=== PATIENT | female | born 1965 | race Hispanic/Latino ===

== ENCOUNTER 2018-12-16 19:35 | Emergency (ER) | payer OTHER, MEDICAID ==
[2018-12-16 20:24] LABS: Basophils # (Auto) 0.1 K/mm3 (0.0-0.1); Basophils % (Auto) 0.5 % (0.0-1.8); Eosinophils % (Auto) 0.1 % (0.0-4.3); Hematocrit 34.4 % (30.3-42.9); Hemoglobin 11.3 gm/dl (10.1-14.3); Lymphocytes # (Auto) 1.9 K/mm3 (1.2-5.4); Lymphocytes % (Auto) 12.6 % (13.4-35.0); Mean Corpuscular HGB Conc 33 % (30-34); Mean Corpuscular Volume 72 fl (79-97); Monocytes # (Auto) 0.5 K/mm3 (0.0-0.8); Monocytes % (Auto) 3.2 % (0.0-7.3); Platelet Count 326 K/mm3 (140-440); Red Blood Count 4.79 M/mm3 (3.65-5.03)
[2018-12-16 20:28] LABS: Alanine Aminotransferase 21 units/L (7-56); Albumin 4.2 g/dL (3.9-5); BUN/Creatinine Ratio 17; Blood Urea Nitrogen 12 mg/dL (7-17); Calcium 9.1 mg/dL (8.4-10.2); Hemolysis Index 37
[2018-12-16] MEDS ORDERED: REGLAN IV ONE (20:35)
[2018-12-16] MEDS ORDERED: NACL 0.9% 1000 ML 1,000 ML IV ONE (20:35)
--- NOTE | 2018-12-16 20:39 | Emergency Department Report ---
ED Abdominal Pain HPI - General Chief Complaint: Abdominal Pain Stated Complaint: GEN SICKNESS,ETOH POISION Time Seen by Provider: 12/16/18 20:30 Source: patient, EMS Mode of arrival: Stretcher Limitations: Physical Limitation - History of Present Illness Initial Comments: Patient is 53 years old female with history of HIV, GERD and arthritis. Patient presented to the ER complaining of upper abdominal pain started 3 days ago. Patient stated that she ran out of her acid medicine. Patient also complaining of vomiting. She denied any hematemesis or melena. Patient denied any fever or chills. Patient also denied any chest pain or shortness of breath. MD Complaint: abdominal pain -: days(s) (3) Location: epigastric Migration to: no migration Severity: moderate Severity scale (0 -10): 4 Quality: burning - Related Data Home Medications Medication Instructions Recorded Confirmed Last Taken ALBUTEROL Inhaler (OR & NICU) 2 puff IH QID PRN 08/28/17 12/17/18 12/14/18 [ProAir HFA Inhaler] Amitriptyline [Elavil] 250 mg PO DAILY 08/28/17 12/17/18 12/14/18 Elviteg/Cob/Emtri/Tenof Alafen 1 each PO DAILY 08/28/17 12/17/18 12/14/18 [Genvoya Tablet] Omeprazole 40 mg PO DAILY 08/28/17 12/17/18 12/14/18 Pramipexole [Mirapex] 1 mg PO QHS 08/28/17 12/17/18 12/14/18 tiZANidine [Zanaflex 4mg TAB] 4 mg PO Q6H PRN 08/28/17 12/17/18 12/14/18 Previous Rx's Medication Instructions Recorded Last Taken Type ALPRAZolam [Xanax TAB] 0.5 mg PO Q6HR PRN tablet 08/31/17 12/14/18 Rx Apixaban [Eliquis] 5 mg PO BID #360 tablet 08/31/17 12/14/18 Rx Apixaban [Eliquis] 10 mg PO BID #14 tablet 08/31/17 12/14/18 Rx Sucralfate [Carafate] 1 gm PO ACHS #120 tablet 12/17/18 Unknown Rx traMADol [Ultram 50 MG tab] 50 mg PO Q4HR PRN #14 tablet 12/17/18 Unknown Rx Allergies Allergy/AdvReac Type Severity Reaction Status Date / Time No Known Allergies Allergy Verified 08/28/17 01:47 ED Review of Systems ROS: Stated complaint: GEN SICKNESS,ETOH POISION Other details as noted in HPI Comment: All other systems reviewed and negative Constitutional: denies: chills, fever Respiratory: denies: cough Cardiovascular: denies: chest pain, palpitations Gastrointestinal: abdominal pain, nausea, vomiting, diarrhea. denies: constipation, hematemesis, melena, hematochezia Musculoskeletal: denies: back pain Neurological: denies: headache, weakness, numbness, paresthesias, confusion, abnormal gait ED Past Medical Hx - Past Medical History Previous Medical History?: Yes Hx Congestive Heart Failure: No Hx Diabetes: No Hx Pulmonary Embolism: Yes Hx GERD: Yes Hx Arthritis: Yes Hx Asthma: No Hx COPD: No Hx HIV: Yes Additional medical history: hiatal hernia - Surgical History Past Surgical History?: Yes Additional Surgical History: tummy tuck, breast augmentation - Social History Smoking Status: Never Smoker Substance Use Type: Alcohol - Medications Home Medications: Home Medications Medication Instructions Recorded Confirmed Last Taken Type ALBUTEROL Inhaler (OR & NICU) 2 puff IH QID PRN 08/28/17 12/17/18 12/14/18 History [ProAir HFA Inhaler] Amitriptyline [Elavil] 250 mg PO DAILY 08/28/17 12/17/18 12/14/18 History Elviteg/Cob/Emtri/Tenof Alafen 1 each PO DAILY 08/28/17 12/17/18 12/14/18 History [Genvoya Tablet] Omeprazole 40 mg PO DAILY 08/28/17 12/17/18 12/14/18 History Pramipexole [Mirapex] 1 mg PO QHS 08/28/17 12/17/18 12/14/18 History tiZANidine [Zanaflex 4mg TAB] 4 mg PO Q6H PRN 08/28/17 12/17/18 12/14/18 History ALPRAZolam [Xanax TAB] 0.5 mg PO Q6HR PRN tablet 08/31/17 12/17/18 12/14/18 Rx Apixaban [Eliquis] 5 mg PO BID #360 tablet 08/31/17 12/17/18 12/14/18 Rx Apixaban [Eliquis] 10 mg PO BID #14 tablet 08/31/17 12/17/18 12/14/18 Rx Sucralfate [Carafate] 1 gm PO ACHS #120 tablet 12/17/18 Unknown Rx traMADol [Ultram 50 MG tab] 50 mg PO Q4HR PRN #14 tablet 12/17/18 Unknown Rx ED Physical Exam - General Limitations: Physical Limitation General appearance: alert, in no apparent distress - Head Head exam: Present: atraumatic, normocephalic, normal inspection - Eye Eye exam: Present: normal appearance - ENT ENT exam: Present: mucous membranes dry - Neck Neck exam: Present: normal inspection, full ROM. Absent: tenderness, meningismus, lymphadenopathy, thyromegaly - Respiratory Respiratory exam: Present: normal lung sounds bilaterally - Cardiovascular Cardiovascular Exam: Present: regular rate, normal rhythm, normal heart sounds - GI/Abdominal GI/Abdominal exam: Present: soft, normal bowel sounds. Absent: distended, tenderness, guarding, rebound, rigid, organomegaly, mass, bruit, pulsatile mass, hernia - Extremities Exam Extremities exam: Present: normal inspection, full ROM, normal capillary refill. Absent: pedal edema, calf tenderness - Back Exam Back exam: Present: normal inspection, full ROM. Absent: CVA tenderness (R), CVA tenderness (L), muscle spasm, paraspinal tenderness, vertebral tenderness - Neurological Exam Neurological exam: Present: alert, oriented X3, CN II-XII intact, normal gait - Psychiatric Psychiatric exam: Present: normal mood - Skin Skin exam: Present: warm, intact, normal color ED Course Vital Signs 12/16/18 12/16/18 12/16/18 19:47 20:00 21:00 Temperature 98.2 F Pulse Rate 109 H 110 H 107 H Respiratory 24 21 16 Rate Blood Pressure 123/94 128/88 151/88 Blood Pressure 123/94 [Right] O2 Sat by Pulse 98 97 96 Oximetry 12/16/18 12/16/18 12/17/18 22:00 23:00 01:00 Temperature Pulse Rate 111 H 98 H 122 H Respiratory 15 17 15 Rate Blood Pressure 152/96 155/97 161/100 Blood Pressure [Right] O2 Sat by Pulse 100 99 95 Oximetry 12/17/18 12/17/18 12/17/18 02:00 03:57 04:01 Temperature Pulse Rate 118 H 130 H 132 H Respiratory 18 22 Rate Blood Pressure 168/96 170/106 Blood Pressure 145/96 [Right] O2 Sat by Pulse 95 94 Oximetry 12/17/18 12/17/18 12/17/18 05:20 08:39 09:00 Temperature 98.6 F Pulse Rate 93 H 101 H Respiratory 15 18 Rate Blood Pressure 150/94 162/100 Blood Pressure 150/94 [Right] O2 Sat by Pulse 99 99 97 Oximetry 12/17/18 12/17/18 10:00 11:00 Temperature Pulse Rate 113 H 118 H Respiratory 19 15 Rate Blood Pressure 162/93 164/98 Blood Pressure [Right] O2 Sat by Pulse 96 93 Oximetry - Reevaluation(s) Reevaluation #1: 12/17/18 05:15 Patient became tachycardic with a heart rate of 135. Patient is still denying any chest pain however patient stated that she drink 6 beers every day and she did not drink yesterday. Patient given Ativan 2 mg IV. I repeat EKG showed a sinus tachycardia with no ST elevation. Troponin is ordered. Chest x-ray is ordered, d-dimer ordered and thyroid panel. ED Medical Decision Making - Lab Data Result diagrams: 12/16/18 19:53 12/16/18 19:53 - EKG Data -: EKG Interpreted by Vt EKG shows normal: sinus rhythm Rate: tachycardia - EKG Data Interpretation: no acute changes - Radiology Data Radiology results: report reviewed - Medical Decision Making Patient is 53 years old female with history of HIV, GERD and arthritis. Patient presented to the ER complaining of upper abdominal pain started 3 days ago. Patient stated that she ran out of her acid medicine. Patient also complaining of vomiting. She denied any hematemesis or melena. Patient denied any fever or chills. Patient also denied any chest pain or shortness of breath. Patient received morphine, Zofran, Reglan, Protonix and GI cocktail. Patient stated that she is feeling much better. Patient also stated that she is anxious because she usually takes Xanax and she missed her dose for today. Patient given Ativan in the ER. Labs reviewed and is unremarkable except for slightly elevated blood Locicero's. CT abdomen and pelvis is negative for acute finding. Patient advised to follow-up with her GI doctor in the next 2-3 days and to attend to the ER if symptoms are not improved. Critical Care Time: Yes Critical care time in (mins) excluding proc time.: 30 Critical care attestation.: If time is entered above; I have spent that time in minutes in the direct care of this critically ill patient, excluding procedure time. ED Disposition Clinical Impression: Abdominal pain, Vomiting, Tachycardia Disposition: - TO HOME OR SELFCARE Is pt being admited?: No Condition: Stable Instructions: Acute Nausea and Vomiting (ED), Abdominal Pain (ED) Prescriptions: Sucralfate [Carafate] 1 gm PO ACHS #120 tablet traMADol [Ultram 50 MG tab] 50 mg PO Q4HR PRN #14 tablet PRN Reason: Pain Referrals: BERNADETTE RICHARDS MD [Primary Care Provider] - 3-5 Days
[2018-12-16 20:49] LABS: Bilirubin,Urine NEG (Negative); Blood,Urine SM (Negative); Color,Urine Yellow (Yellow); Protein,Urine <15 mg/dL mg/dL (Negative); Urobilinogen,Urine < 2.0 mg/dL (<2.0)
[2018-12-16] MEDS ORDERED: LIDOCAINE VISCOUS 2% PO ONE (22:29)
[2018-12-16] MEDS ORDERED: PROTONIX IV ONE (22:29)
[2018-12-16] MEDS ORDERED: ALUM-MAG HYDROX-SIMETH 200-200-20MG/5ML PO ONE (22:29)
--- NOTE | 2018-12-17 00:05 | Cat Scan Report ---
CT abdomen pelvis w con INDICATION: abdominal pain. TECHNIQUE: All CT scans at this location are performed using the following dose modulation technique: Automated exposure control. Helical slices were obtained through the abdomen and pelvis. 100 cc of Omnipaque 30 0 is administered. COMPARISON: None available FINDINGS: Abdomen: There are bilateral breast implants. The liver, spleen, pancreas, adrenal glands, and small bowel are unremarkable. There is no obstruction, inflammation, or free air. There are no abnormal flu id collections. There multiple tiny low densities in the kidneys which are too small to characterize but likely repre sent cysts. There is no hydronephrosis. There is no adenopathy. The aorta is normal in diameter. There are scattered diverticula in the colon. Pelvis: There is sigmoid diverticulosis. There is no CT evidence of diverticulitis the uterus appears to have a nodular surface suggesting uterine fibroids. No adenopathy is seen. The appendix is unremarkable. There are fat-containing inguinal hernias bilaterally. On review of bone windows, no acute osseous abnormalities are seen. Degenerative changes are noted in the spine. IMPRESSION: 1. There is no obstruction, inflammation, or free air. Low densities in the kidneys are too small to characterize but likely represent cysts. There are probable uterine fibroids. Signer Name: Ralph Mora MD Signed: 12/17/2018 12:01 AM Workstation Name: [id number]
[2018-12-17] MEDS ORDERED: ATIVAN ONE (01:08)
[2018-12-17] MEDS ORDERED: ATIVAN IV ONE (01:08)
[2018-12-17] MEDS ORDERED: NACL 0.9% 1000 ML 1,000 ML IV ONE (03:38)
[2018-12-17] MEDS ORDERED: NORMODYNE IV ONE (03:38)
--- NOTE | 2018-12-17 05:29 | XRay Report ---
CHEST 1 VIEW INDICATION / CLINICAL INFORMATION: abdominal pain. COMPARISON: 08/28/2017 FINDINGS: SUPPORT DEVICES: None. HEART / MEDIASTINUM: No significant abnormality. LUNGS / PLEURA: No significant pulmonary or pleural abnormality.. No pneumothorax. ADDITIONAL FINDINGS: No significant additional findings. IMPRESSION: 1. No acute findings. Signer Name: Ralph Mora MD Signed: 12/17/2018 5:25 AM Workstation Name: [id number]
[2018-12-17 05:48] LABS: Free T4 (Free Thyroxine) 1.04 ng/dL (0.76-1.46)
--- NOTE | 2018-12-17 07:41 | Nuclear Medicine Report ---
VENTILATION PERFUSION PULMONARY SCINTIGRAPHY HISTORY: Tachycardia, elevated d-dimer history of pulmonary embolus, out of anticoagulation medicatio n for 4 months COMPARISON: 12/17/2018 at 0507 hours chest radiograph. TECHNIQUE: Radiopharmaceutical was inhaled. Tc-99m-MAA was then injected. Ventilation and perfusion images were acquired. RADIOPHARMACEUTICAL: 19 mCi of Xe-133 inhaled 4.5 mCi of Tc-99m-MAA injected FINDINGS: VENTILATION: No significant air trapping or defect. PERFUSION: No significant segmental or non-segmental defect. Additional Findings: None. IMPRESSION: 1. Low probability for pulmonary embolism. Signer Name: Mohinder Mcleod Jr, MD Signed: 12/17/2018 7:37 AM Workstation Name: [id number]
[2018-12-17 11:14] VITALS: BP 164/98
== END 2018-12-17 11:15 | disposition home or self-care (01) ==
LOC: ED 19:35
DX: R10.13 Epigastric pain (principal); R10.10 Upper abdominal pain, unspecified; R11.10 Vomiting, unspecified; R00.0 Tachycardia, unspecified; K21.9 Gastro-esophageal reflux disease without esophagitis; M19.90 Unspecified osteoarthritis, unspecified site; Z86.711 Personal history of pulmonary embolism; Z98.890 Other specified postprocedural states; Z79.899 Other long term (current) drug therapy
CPT/HCPCS: 36415; 71045; 74177; 78582; 80053; 81001; 83690; 84439; 84443; 84484; 85025; 85379; 93005; 93010; 96361; 96374; 96375; 99285; A9540; A9558; C9113; J2060; J2765; J7030; Q9967